=== PATIENT | male | born 1935 | race Caucasian/White ===

== ENCOUNTER 2016-04-29 19:47 | Emergency (ER) | payer MEDICARE, MEDICAID ==
[~2016-04-29] VITALS: Ht 152.4 cm; Wt 51.3 kg
[2016-04-29 22:51] LABS: Basophils # (auto) 0.1 uL; Basophils % (auto) 0.5 % (0.0-2.0); Eosinophils # (auto) 0 uL; Hematocrit 46.3 % (41.0-53.0); Lymphocytes # (auto) 1.3 uL; Lymphocytes % (auto) 10.4 % (10.0-50.0); Mean Corpuscular Hemoglobin 29.3 pg (28.0-32.0); Mean Corpuscular Hgb Conc. 32.4 g/dL (32.0-36.0); Mean Corpuscular Volume 90.4 fL (80.0-100.0); Mean Platelet Volume 8.7 fL (7.4-10.4); Monocytes # (auto) 0.9 uL; Monocytes % (auto) 6.9 % (0.0-12.0); Neutrophils # (auto) 10.4 uL; Neutrophils % (auto) 82.2 % (37.0-80.0); Platelet Count (auto) 278 10^3/uL (140-450); White Blood Cell 12.7 10^3/uL (4.4-10.8)
[2016-04-29 23:28] LABS: Albumin 3.2 g/dL (3.4-5.0); BUN/Creatinine Ratio 19.5; Calcium 8.7 mg/dL (8.5-10.1); Potassium 4.1 mmol/L (3.5-5.1)
[2016-04-29 23:30] LABS: Bilirubin, Total 0.6 mg/dL (0.2-1.0); Total Protein 7.6 g/dL (6.4-8.2)
[2016-04-29 23:54] VITALS: BP 143/81
[2016-04-30 00:02] LABS: Urine Bilirubin Negative (Negative); Urine Blood 2+ /uL (Negative); Urine Color Yellow (Yellow); Urine Glucose Normal (Normal); Urine Granular Cast MANY /lpf (0); Urine Ketone Negative (Negative); Urine Nitrite POSITIVE (Negative); Urine RBC 215 /hpf (0 - 3); Urine Urobilinogen Normal (Negative); Urine WBC Clumps PRESENT /hpf (None Seen)
[2016-04-30] MEDS ORDERED: cefTRIAXone 1GM/50ML D5W 50 ML IV ONE (01:00)
[2016-04-30] MEDS ORDERED: ONDANSETRON HCL 4 MG/2 ML VIAL IV ONE (01:30)
[2016-04-30] MEDS ORDERED: MORPHINE SULF INJ 2 MG/ML SYRINGE 1ML IV ONE (01:30)
== END 2016-04-30 02:22 | disposition home or self-care (01) ==
LOC: ER 19:49
DX: R33.9 Retention of urine, unspecified (principal); N39.0 Urinary tract infection, site not specified; I10 Essential (primary) hypertension; Z86.73 Personal history of transient ischemic attack (TIA), and cerebral infarction without residual deficits; F03.90 Unspecified dementia, unspecified severity, without behavioral disturbance, psychotic disturbance, mood disturbance, and anxiety
CPT/HCPCS: 36415; 51702; 80053; 81001; 85025; 85049; 87077; 87086; 87088; 87186; 87205; 96365; 96375; 99284; J0696; J2270; J2405